=== PATIENT | male | born 1995 | race Caucasian/White ===

== ENCOUNTER → 2016-08-22 | Outpatient (CLI) | payer BC ==
[~2016-08-22] MED LIST: CYCL10TA9 PO; IBUP-30 PO; MULT-228 PO; MULT-963 PO; NAPR500T3 PO; NAPR550T PO
[2016-08-22 15:23] LABS: BASOPHILS % (AUTO) 0 % (0-10); EOSINOPHILS % (AUTO) 0 % (0-10); LYMPHOCYTES # (AUTO) 1.1 X 10^3 (1.0-4.0); LYMPHOCYTES % (AUTO) 13 % (12-44); MEAN CORPUSCULAR HEMOGLOBIN 29 PG (25-34); MEAN CORPUSCULAR HGB CONC 34 G/DL (32-36); MEAN CORPUSCULAR VOLUME 85 FL (80-99); MEAN PLATELET VOLUME 9.9 FL (7.4-10.4); MONOCYTES % (AUTO) 13 % (0-12); NEUTROPHILS # (AUTO) 6.1 X 10^3 (1.8-7.8); NEUTROPHILS % (AUTO) 74 % (42-75); PLATELET COUNT 202 10^3/uL (130-400); RED BLOOD COUNT 4.58 10^6/uL (4.35-5.85); RED CELL DISTRIBUTION WIDTH 12.4 % (10.0-14.5); WHITE BLOOD COUNT 8.3 10^3/uL (4.3-11.0)
[2016-08-22 15:36] LABS: BAND NEUTROPHILS 2 %; BASOPHILS % (MANUAL) 0 %; EOSINOPHILS % (MANUAL) 0 %; LYMPHOCYTES % (MANUAL) 17 %; NEUTROPHILS % (MANUAL) 80 %
== END ==
LOC: LAB 15:07
PROVIDERS: ATTEND Family Medicine
DX: J02.9 Acute pharyngitis, unspecified (principal); R50.9 Fever, unspecified
CPT/HCPCS: 36415; 85007; 85027; 86308

== ENCOUNTER → 2016-08-23 | Outpatient (CLI) | payer BC ==
--- NOTE | 2016-08-23 12:29 | Diagnostic Imaging Report ---
PA and lateral views of the chest Indication: Fever Findings: The lungs are clear. The heart size is normal. There is no effusion or pneumothorax The mediastinum and tangela appear unremarkable. Impression: Unremarkable study. Dictated by: Dictated on workstation # [id number]
[2016-08-23 13:05] LABS: ALANINE AMINOTRANSFERASE 25 U/L (0-55); ALBUMIN 3.8 GM/DL (3.2-4.5); ANION GAP 11 MMOL/L (5-14); ASPARTATE AMINO TRANSFERASE 27 U/L (5-34); BILIRUBIN,TOTAL 0.3 MG/DL (0.1-1.0); BLOOD UREA NITROGEN 17 MG/DL (7-18); BUN/CREATININE RATIO 20; CARBON DIOXIDE 22 MMOL/L (21-32); CHLORIDE 106 MMOL/L (98-107); CREATININE SERUM 0.84 MG/DL (0.60-1.30); GFR ESTIMATED > 60; GLUCOSE 83 MG/DL (70-105); POTASSIUM 4.1 MMOL/L (3.6-5.0); SODIUM 139 MMOL/L (135-145); TOTAL PROTEIN 6.9 GM/DL (6.4-8.2)
== END ==
LOC: RAD 11:55
PROVIDERS: ATTEND Family Medicine
DX: R50.9 Fever, unspecified (principal); R53.1 Weakness
CPT/HCPCS: 36415; 71020; 80053

== ENCOUNTER → 2018-02-10 | Outpatient (CLI) | payer BC ==
[~2018-02-10] MED LIST changes: +NAPR-1070 PO; +NAPR-915 PO; -NAPR500T3 PO; -NAPR550T PO
--- NOTE | 2018-02-10 09:15 | Diagnostic Imaging Report ---
EXAM: MRI THORACIC SPINE W/O CONTRAST. INDICATION: Chronic back pain. COMPARISON: None. FINDINGS: Normal alignment. Vertebral body heights are preserved. Small Schmorl's node in the superior endplate of T6. Bone marrow signal is otherwise unremarkable. No spinal canal or neuroforaminal narrowing. No abnormal signal in the thoracic spinal cord. The visualized paravertebral soft tissues are unremarkable. IMPRESSION: Mild spondylotic changes including a Schmorl's node in the superior endplate of T6. No acute osseous findings. No high-grade neural impingement. No abnormal signal in the thoracic spinal cord. Dictated by: Dictated on workstation # [id number]
--- NOTE | 2018-02-10 09:36 | Diagnostic Imaging Report ---
PROCEDURE: MRI lumbar spine. TECHNIQUE: Multiplanar, multisequence MRI of the lumbar spine was performed without contrast. INDICATION: Chronic low back pain. COMPARISON: Thoracic spine MRI also performed today. Lumbar spine MRI without contrast dated 02/02/2016. FINDINGS: There are 5 lumbar type vertebral bodies for the purposes of this report. Normal alignment. Vertebral body heights preserved. Normal bone marrow signal. There is mild disc desiccation at L4-L5. Intervertebral discs are otherwise preserved. There is no substantial spinal canal or lateral recess narrowing in the lumbar spine. There is mild neuroforaminal narrowing at L4-L5. No high-grade neuroforaminal narrowing. No abnormal signal in the conus which terminates at L1. Normal morphology of the cauda equina. The visualized abdominal and pelvic contents are unremarkable. IMPRESSION: Mild spondylotic changes are greatest at L4-L5. There is no high-grade neural impingement. No acute osseous findings. Dictated by: Dictated on workstation # [id number]
== END ==
LOC: RAD 07:54
PROVIDERS: ATTEND Family Medicine
DX: M47.814 Spondylosis without myelopathy or radiculopathy, thoracic region (principal); M51.44 Schmorl's nodes, thoracic region; M47.816 Spondylosis without myelopathy or radiculopathy, lumbar region
CPT/HCPCS: 72146; 72148

== ENCOUNTER 2019-02-05 15:07 | Outpatient (RCR) | payer BC | END 2019-04-07 | disposition home or self-care (01) | DX: M54.9 Dorsalgia, unspecified (principal) ==

== ENCOUNTER 2021-03-25 20:06 | Emergency (ER) | payer BC ==
[~2021-03-25] VITALS: Ht 175.3 cm; Wt 77.1 kg
[~2021-03-25 20:06] MED LIST changes: +CYCL10TA25 PO; -CYCL10TA9 PO
--- NOTE | 2021-03-25 20:49 | ED Respiratory ---
General Chief Complaint: General Problems/Pain Stated Complaint: THROAT AND CHEST TIGHT, CANT TAKE DEEP BREATHS Nursing Triage Note: PT AMBULATE TO ROOM 10 WITH C/O CHEST TIGHTNESS AND RIGHT SIDE THROAT PAIN. PT STATES HE THINKS HE HAS A PNEUMOTHORAX. PT STATES HE HAD A PNEUMOTHORAX IN 2017 AND THIS FEELS THE SAME. PT 100% RA UPON ARRIVAL. PT DENIES CHEST PAIN. 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 TOOK A NAP AND WOKE UP THIS EVENING AND WAS FINE, THEN STARTED WATCHING VIDEOS WHEN SYMPTOMS BEGAN PT TESTED + FOR COVID-19 ON 03/05/21--SYMPTOMS BEGAN 03/02/21 RX FOR Z-PACK CALLED IN BY HIS PCP, DR. HILL PT STATES MILD ILLNESS AND THOSE SYMPTOMS QUICKLY RESOLVED PT HAD SPONTANEOUS PNEUMOMEDIASTINUM 01/2016--THOUGHT DUE TO RESOLVING PNEUMOTHORAX, DUE TO COUGHING--PT STATES THIS FEELS EXACTLY THE SAME MOTHER ALSO HAS HISTORY OF SPONTANEOUS PNEUMOTHORAX DUE TO ASTHMA AND COUGHING PCP: DR. HILL Allergies and Home Medications Allergies Coded Allergies: No Known Drug Allergies (Unverified , 12/03/11) Patient Home Medication List Home Medication List Reviewed: Yes Multivitamin (Flintstones) 1 Each Tab.chew, 2 TAB.CHEW PO DAILY, (Reported) Entered as Reported by: CEE PETTY on 01/24/16927 Naproxen (Naproxen) 500 Mg Tablet, 500 MG PO BID PRN for PAIN, (Reported) Entered as Reported by: CEE PETTY on 01/24/16927 Review of Systems Review of Systems Constitutional: no symptoms reported EENTM: see HPI Respiratory: see HPI Cardiovascular: no symptoms reported; No chest pain Gastrointestinal: no symptoms reported Genitourinary: no symptoms reported Musculoskeletal: no symptoms reported; No back pain Skin: no symptoms reported Psychiatric/Neurological: No Symptoms Reported Hematologic/Lymphatic: No Symptoms Reported Immunological/Allergic: no symptoms reported Past Npreldf-Zxrjgv-Pvkwzd Hx Patient Social History Tobacco Use?: No Smoking Status: Never a Smoker Smokeless Tobacco Frequency: Never a User Use of E-Cig and/or Vaping dev: No Use of E-Cig and/or Vaping Joe: Never a User Substance use?: No Alcohol Use?: No Pt feels they are or have been: No Immunizations Up To Date Tetanus Booster (TDap): Less than 5yrs PED Vaccines UTD: No Seasonal Allergies Seasonal Allergies: Yes Past Medical History Surgeries: No Respiratory: Yes (SPONTANEOUS PNEUMOMEDIASTINUM 01/2016--NO TREATMENT) Cardiac: No Neurological: No Reproductive Disorders: No Sexually Transmitted Disease: No HIV/AIDS: No Genitourinary: No Gastrointestinal: No Musculoskeletal: No Endocrine: No HEENT: No Loss of Vision: Denies Cancer: No Psychosocial: No Integumentary: No Blood Disorders: No Adverse Reaction/Blood Tranf: No Physical Exam Vital Signs - First Documented 03/25/21 03/25/21 20:15 22:47 Temp 36.1 Pulse 85 Resp 19 B/P (MAP) 142/75 (97) Pulse Ox 99 O2 Delivery Room Air Capillary Refill : Less Than 3 Seconds Height: 5'9.00" Weight: 165lbs. 2.0oz. 74.276225zo; 25.00 BMI Method:Stated General Appearance: WD/WN, no apparent distress HEENT: PERRL/EOMI, normal ENT inspection, TMs normal, pharynx normal Neck: non-tender, full range of motion, supple, normal inspection, other (NO CREPITANCE OR SUB Q AIR) Respiratory: chest non-tender, normal breath sounds, no respiratory distress, no accessory muscle use, other (NO CREPITANCE OR SUB Q AIR) Cardiovascular: regular rate, rhythm, no murmur Gastrointestinal: non tender, soft Extremities: normal inspection Neurologic/Psychiatric: unload associate II-XII nml as tested, no motor/sensory deficits, alert, normal mood/affect, oriented x 3 Skin: normal color, warm/dry Progress/Results/Core Measures Suspected Sepsis SIRS Temperature: Pulse: 85 Respiratory Rate: 19 Blood Pressure 142 /75 Mean: 97 Results/Orders My Orders Orders - ARNOL HODGE DO Chest 1 View, Ap/Pa Only (03/25/21 20:21) Isolation Central Supply Req (03/25/21 20:21) Ekg Tracing (03/25/21 20:24) Monitor-Rhythm Ecg Trace Only (03/25/21 20:24) Ct Chest Wo (03/25/21 21:11) Vital Signs/I&O 03/25/21 03/25/21 03/25/21 20:15 20:15 22:47 Temp 36.1 Pulse 85 98 Resp 19 18 B/P (MAP) 142/75 (97) 136/75 Pulse Ox 99 O2 Delivery Room Air Room Air Room Air Capillary Refill : Less Than 3 Seconds Blood Pressure Mean: 97 Progress Note : Progress Note UNEVENTFUL ER STAY NO COUGH NO DYSPNEA NO HYPOXIA--O2 SAT 100% ON ROOM AIR NO ABNORMAL VITALS DISCUSSED NEED FOR TRANSFER TO HIGHER LEVEL OF CARE, AND PT DECLINES ADMIT HERE OR TRANSFER RISKS/BENEFITS DISCUSSED, INCLUDING RISK OF . PT SIGNING OUT AMA. PT STATES HE IS FEELING MUCH BETTER AND JUST WANTS TO GO HOME. STATES HE WILL FOLLOW UP WITH DR. HILL. STRICT RETURN PRECAUTIONS DISCUSSED WITH PT ECG Initial ECG Impression Date: Mar 25, 2021 Initial ECG Impression Time: 20:19 Initial ECG Rate: 84 Initial ECG Rhythm: Normal Sinus Initial ECG Impression: Normal Diagnostic Imaging Comments CXR--NO ACUTE PROCESS, PER RADIOLOGIST REPORT AT 2144 CT CHEST--PER RADIOLOGIST VIA PHONE AT 2124 FINDINGS: Thyroid: The thyroid is normal. Mediastinum: Heart size is normal without significant pericardial effusion. The aorta is normal in caliber. No suspicious lymphadenopathy. There is air seen within the upper mediastinum extending inferiorly to the inferior mediastinum tracking along the trachea and esophagus. Lungs and airways: The lungs are clear without consolidation, pleural effusion or pneumothorax. The airways are normal. Upper abdomen: Mild free air is seen just inferior to the diaphragm likely tracking from the mediastinum. Musculoskeletal: No suspicious osseous lesion or compression fracture. Mild subcutaneous emphysema seen overlying the right axilla and right neck. IMPRESSION: 1. Findings of pneumomediastinum with likely extension into the right axilla and neck as well as within the upper abdomen. 2. No pneumothorax or other acute abnormality within the lungs. Reviewed: Reviewed by Me Departure Communication (Admissions) 2130--BRIEFLY SPOKE WITH DR. BRASWELL, SURGEON, HE WILL CALL BACK 2212--SPOKE WITH DR. BRASWELL, HE ADVISES TRANSFER TO HIGHER LEVEL OF CARE WITH PULMONARY AND THORACIC SURGERY SERVICES. Impression Primary Impression: SPONTANEOUS PNEUMOMEDIASTINUM Additional Impressions: RECENT COVID-19 INFECTION Left against medical advice Disposition: 07 AGAINST MEDICAL ADVICE Condition: Against Medical Advice Departure-Patient Inst. Referrals: BERTHA HILL MD (PCP/Family) Primary Care Physician ARNOL HODGE DO Mar 25, 2021 20:49
--- NOTE | 2021-03-25 21:21 | Diagnostic Imaging Report ---
EXAMINATION: Chest 1 view. HISTORY: CP, HX of spontaneous pneumothorax. COMPARISON: 08/23/2016. FINDINGS: Heart size and pulmonary vasculature are normal. The lungs are clear without consolidation, pleural effusion or pneumothorax. The osseous structures are intact. IMPRESSION: No acute radiographic abnormality in the chest. Dictated by: Dictated on workstation # [id number]
--- NOTE | 2021-03-25 21:31 | Diagnostic Imaging Report ---
EXAMINATION: CT chest without contrast. TECHNIQUE: Multiple contiguous axial images were obtained through the chest without the use of intravenous contrast. All CT scans use one or more of the following dose optimizing techniques: automated exposure control, MA and/or KvP adjustment based on patient size and exam type or iterative reconstruction. HISTORY: CP, HX spontaneous pneumothorax/mediastinum. COMPARISON: 01/24/2016. FINDINGS: Thyroid: The thyroid is normal. Mediastinum: Heart size is normal without significant pericardial effusion. The aorta is normal in caliber. No suspicious lymphadenopathy. There is air seen within the upper mediastinum extending inferiorly to the inferior mediastinum tracking along the trachea and esophagus. Lungs and airways: The lungs are clear without consolidation, pleural effusion or pneumothorax. The airways are normal. Upper abdomen: Mild free air is seen just inferior to the diaphragm likely tracking from the mediastinum. Musculoskeletal: No suspicious osseous lesion or compression fracture. Mild subcutaneous emphysema seen overlying the right axilla and right neck. IMPRESSION: 1. Findings of pneumomediastinum with likely extension into the right axilla and neck as well as within the upper abdomen. 2. No pneumothorax or other acute abnormality within the lungs. Critical finding. Results communicated to Dr. Mc by Dr. Cayden Dowling at 9:26 PM on 03/25/2021. Dictated by: Dictated on workstation # [id number]
[2021-03-25 22:47] VITALS: BP 136/75
== END 2021-03-25 22:47 | disposition left against medical advice (07) ==
LOC: EDUNIT# 20:06 → ER 20:11
DX: U07.1 COVID-19 (principal); J98.2 Interstitial emphysema; Z73.0 Burn-out
CPT/HCPCS: 71045; 71250; 93005; 93041